=== PATIENT | male | born 1960 | race Hispanic/Latino ===

== ENCOUNTER 2018-02-18 13:18 | Observation (INO) | payer OTHER ==
[~2018-02-18] VITALS: Ht 180.3 cm; Wt 98.7 kg
[~2018-02-18 13:18] MED LIST: BENZONATATE200 MG; CEFDINIR125 MG/5 M; HUMULIN R100 UNIT/2; TAMIFLU75 MG PO; insulin n
[2018-02-18] MEDS ORDERED: MORPHINE SULFATE INJ 4 MG/ML INJ IV STA ×2 (13:21→17:15)
[2018-02-18] MEDS ORDERED: ASPIRIN 81 MG CHEW TAB PO STA (13:21)
[2018-02-18 13:38] LABS: BASOPHILS # (AUTO) 0.1 (0.0-0.1); BASOPHILS % 0.9 % (0.0-1.0); EOSINOPHILS # (AUTO) 0.2 (0.0-0.4); EOSINOPHILS % 2.4 % (0.0-6.0); HEMATOCRIT 48.2 % (38.2-49.6); HEMOGLOBIN 16.3 g/dL (14.0-18.0); LYMPHOCYTES # (AUTO) 2.5 (1.0-3.2); LYMPHOCYTES % 30.9 % (18.0-39.1); MEAN CORPUSCULAR HGB CONC 33.8 g/dL (31-35); MEAN CORPUSCULAR VOLUME 88.6 fL (81-99); MONOCYTES # (AUTO) 0.6 (0.2-0.8); MONOCYTES % 6.8 % (4.4-11.3); NEUTROPHILS # (AUTO) 4.7 (2.1-6.9); NEUTROPHILS % 58.1 % (38.7-80.0); PLATELET COUNT 283 x10e3/uL (140-360); RED BLOOD COUNT 5.44 x10e6/uL (4.3-5.7); RED CELL DISTRIBUTION WIDTH 12.6 % (11.7-14.4)
[2018-02-18 13:49] LABS: INR 1.03; PARTIAL THROMBOPLASTIN TIME 29.8 seconds (23.8-35.5); PROTHROMBIN TIME 12.7 seconds (11.9-14.5)
[2018-02-18] MEDS: NITROGLYCERIN 0.4 MG SUBL SL PRN ×2 (13:55→14:00)
[2018-02-18 13:59] LABS: ALANINE AMINOTRANSFERASE 46 IU/L (0-55); ALBUMIN/GLOBULIN RATIO 1.2 (0.8-2.0); ALKALINE PHOSPHATASE 75 IU/L (40-150); ANION GAP 15.3 mmol/L (8-16); BLOOD UREA NITROGEN 14 mg/dL (7-26); BUN/CREATININE RATIO 14 (6-25); CALCIUM 9.5 mg/dL (8.4-10.2); CARBON DIOXIDE 27 mmol/L (22-29); CHLORIDE 103 mmol/L (98-107); CREATINE KINASE 423 IU/L (30-200); CREATININE, SERUM 0.99 mg/dL (0.72-1.25); EST GLOMERULAR FILTRATION RATE > 60 ML/MIN (60-); GLUCOSE 255 mg/dL (74-118); POTASSIUM 4.3 mmol/L (3.5-5.1); SODIUM 141 mmol/L (136-145)
--- NOTE | 2018-02-18 14:09 | Diagnostic Imaging Report ---
EXAMINATION: CHEST SINGLE (PORTABLE) INDICATION: Chest pain. \S\ERMD ORDER \S\[id number] \S\1310 \S\Y COMPARISON: 08/06/2015 FINDINGS: AP view Limited by body habitus and low lung volumes. TUBES and LINES: None. LUNGS: Lungs are well inflated. Left basilar and retrocardiac opacification. PLEURA: No pleural effusion or pneumothorax. HEART AND MEDIASTINUM: The cardiac silhouette is mildly prominent, accentuated by low lung volumes. BONES AND SOFT TISSUES: No acute osseous lesion. Soft tissues are unremarkable. UPPER ABDOMEN: No free air under the diaphragm. IMPRESSION: Left basilar and retrocardiac hazy opacification, likely subsegmental atelectasis. Underlying infiltrate cannot be excluded in the appropriate clinical setting. Signed by: Dr. Jesus Hi MD on 02/18/2018 2:06 PM
[2018-02-18 14:46] LABS: AMPHETAMINES SCREEN,URINE NEGATIVE (NEGATIVE); BENZODIAZEPINES SCREEN,URINE NEGATIVE (NEGATIVE); PHENCYCLIDINE SCREEN,URINE NEGATIVE (NEGATIVE)
[2018-02-18] MEDS ORDERED: MORPHINE SULFATE 2 MG/ML SYR IV PRN (18:00)
[2018-02-18] MEDS ORDERED: ONDANSETRON HCL INJ 2 MG/ML VIAL IV PRN (18:00)
[2018-02-18] MEDS ORDERED: DEXTROSE 50% SYRINGE 50 ML IV PRN (18:00)
[2018-02-18] MEDS ORDERED: NITROGLYCERIN 0.4 MG SUBL SL PRN (18:00)
[2018-02-18] MEDS: FAMOTIDINE 20 MG/2 ML VIAL IV SCH (19:23)
[2018-02-18 20:00] VITALS: BP 159/84
[2018-02-18] MEDS: INSULIN REGULAR, HUMAN 100 UNIT/1 ML 3ML VIAL SQ SCH (21:29)
[2018-02-18 22:42] LABS: CREATINE KINASE 264 IU/L (30-200)
[2018-02-19] VITALS (8 sets, daily range): BP systolic 132–169; BP diastolic 66–83
[2018-02-19] MEDS: FAMOTIDINE 20 MG/2 ML VIAL IV SCH ×2 (05:22→17:01)
[2018-02-19 05:55] LABS: CREATINE KINASE 230 IU/L (30-200)
[2018-02-19 06:17] LABS: ANION GAP 11.4 mmol/L (8-16); BLOOD UREA NITROGEN 13 mg/dL (7-26); BUN/CREATININE RATIO 14 (6-25); CARBON DIOXIDE 27 mmol/L (22-29); CHLORIDE 105 mmol/L (98-107); CHOL/HDL RATIO 3.6 (3.9-4.7); CHOLESTEROL 133 MD/DL (0-199); CREATININE, SERUM 0.95 mg/dL (0.72-1.25); EST GLOMERULAR FILTRATION RATE > 60 ML/MIN (60-); GLUCOSE 200 mg/dL (74-118); HDL CHOLESTEROL 37 MG/DL (40-60); LDL CHOLESTEROL 75 MG/DL (60-130); POTASSIUM 4.4 mmol/L (3.5-5.1); SODIUM 139 mmol/L (136-145); TRIGLYCERIDES 105 MG/DL (0-149)
[2018-02-19 07:00] LABS: BASOPHILS # (AUTO) 0.1 (0.0-0.1); BASOPHILS % 0.5 % (0.0-1.0); EOSINOPHILS # (AUTO) 0.2 (0.0-0.4); EOSINOPHILS % 2.3 % (0.0-6.0); HEMATOCRIT 43.5 % (38.2-49.6); LYMPHOCYTES # (AUTO) 2.4 (1.0-3.2); LYMPHOCYTES % 25.7 % (18.0-39.1); MEAN CORPUSCULAR HEMOGLOBIN 29.9 pg (28-32); MEAN CORPUSCULAR HGB CONC 33.3 g/dL (31-35); MEAN CORPUSCULAR VOLUME 89.7 fL (81-99); MONOCYTES # (AUTO) 0.7 (0.2-0.8); MONOCYTES % 7.2 % (4.4-11.3); NEUTROPHILS % 63.7 % (38.7-80.0); PLATELET COUNT 254 x10e3/uL (140-360); RED BLOOD COUNT 4.85 x10e6/uL (4.3-5.7); RED CELL DISTRIBUTION WIDTH 12.5 % (11.7-14.4)
[2018-02-19 07:02] LABS: HEMOGLOBIN 14.5 g/dL (14.0-18.0)
[2018-02-19] MEDS: INSULIN REGULAR, HUMAN 100 UNIT/1 ML 3ML VIAL SQ SCH ×4 (08:46→20:30)
[2018-02-19] MEDS: ASPIRIN 81 MG ENTERIC COATED PO SCH (08:46)
[2018-02-19] MEDS: LEVOFLOXACIN 500MG/D5W 100ML 100 ML IV SCH (11:40)
[2018-02-19] MEDS: ACETAMINOPHEN 325 MG TAB PO PRN ×2 (11:50→21:20)
[2018-02-19] MEDS ORDERED: SODIUM CHLORIDE 0.9% 250ML 250 ML ONE (11:51)
[2018-02-19 12:30] LABS: CREATINE KINASE 253 IU/L (30-200)
--- NOTE | 2018-02-19 13:52 | Cardiology Report ---
DATE OF STUDY: CARDIAC STRESS TEST TECHNICAL DETAILS. The protocol is a Elian with 85% heart rate at 139 per minute. RESULTS 1. Patient exercised for 6 minutes. 2. Heart rate increased from 93 to 148 per minute. 3. Blood pressure increased from 150/80 to 188/94. 4. No chest pain. 5. No EKG changes. IMPRESSION: Negative cardiac stress test. Limitation of negative cardiac stress test discussed with the patient at length. Since he is diabetic, we will recommend aspirin 81 mg a day and GONZALEZ inhibitor. Lipid profile is checked. Limitations are explained with patient having any symptoms, he need to give us a call. Job#: [id number] LOUISE
--- NOTE | 2018-02-19 14:24 | Consultation ---
DATE OF CONSULTATION: February 19, 2018 REASON FOR CONSULTATION: Chest pain. HISTORY: This is a 57-year-old male with long history of diabetes for at least 20 to 25 years, diabetic neuropathy, diabetic retinopathy, chronic bronchitis, and sinusitis issues. Patient presents to [facility] ER with several-day history of feeling short of breath, weakness, occasional chest discomfort; therefore, came to the ER for further evaluation. Cardiology was consulted to evaluate patient. Patient seen in room, in no acute distress, reports for the past several days he has been short of breath, feeling weak, headaches, stating not feeling himself, and also feeling nasal congestion, intermittent coughing. However, yesterday patient was in [employer]. Apparently, when he was leaving, he felt very weak, had some chest discomfort. He thought it was indigestion; however, felt slightly dizzy and therefore asked his family member to bring him to the hospital. States that chest pain lasted all day, was indigestion he thought, and maybe some slight pressure, substernal. Also, patient in ER received 2 nitroglycerins, which patient states did help some of this "indigestion." Also, patient was concerned because he has noticed in the past several days, his blood pressure anywhere from 160s to 170 systolic, and he reports his blood pressure is always 130s. However, patient does admit to taking NSAIDs frequently and also had been taking Sudafed, multiple doses, in the past several days for his nasal congestion. Currently, patient is chest pain free. PAST MEDICAL HISTORY: Diabetes, diabetic neuropathy, diabetic retinopathy, sinusitis, and bronchitis. SURGICAL HISTORY: Right retinal surgery secondary to hemorrhage, argon therapy in 2007. FAMILY HISTORY: Mother is alive at the age of 84, apparently has a history of stroke, [place], and CHF. Father aged 87, alive, apparently history of diabetes and Parkinson's. SOCIAL HISTORY: He is . 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 He denies any alcohol use or tobacco use. HOME MEDICATIONS: Include insulin, albuterol, steroid, Sudafed, and [id number]-[id number] NSAIDS. ALLERGIES: NO KNOWN ALLERGIES. REVIEW OF SYSTEMS GENERAL: Positive for weight gain in the past year at least 20 pounds. Positive for fatigue, weakness, subjective fevers and chills. Denies any night sweats. SKIN: No rashes or sores reported. HEENT: Denies any trauma. Positive for headaches. Positive for nausea. Denies any vomiting. Chronic right eye blurriness since right eye surgery in about 2007. Denies any tinnitus, vertigo, earaches. Positive for stuffiness, itchy. Denies any epistaxis. Denies any sore throat, swollen neck, hoarseness. CARDIAC: Positive for chest pain. Positive dyspnea on exertion. Denies any palpitations. Denies any orthopnea, PND, or lower extremity edema. RESPIRATORY: Positive for shortness of breath. Positive for cough. Positive for wheezing. Cough productive, which he says it is clear in nature. GI: Good appetite. Positive for nausea. Denies any vomiting. Denies any diarrhea, constipation, hematemesis, or melena. URINARY: Positive for hesitancy, poor urine stream. Denies any dysuria. VASCULAR: Denies any lower extremity edema, claudication. MUSCULOSKELETAL: Positive for generalized muscle weakness. Positive for generalized joint pains, back pain. NEUROLOGIC: Denies any numbness, tingling, paralysis, blackouts, seizures. HEMATOLOGY: Denies any anemia, bruising. ENDOCRINE: Denies any heat or cold intolerance, any polyuria, polydipsia, polyphagia. PHYSICAL EXAMINATION CURRENT VITALS SIGNS: Temperature 98.0, pulse 73, respiratory rate 18, blood pressure 167/81, on room air 100%. Height 71 inches, weight 234 pounds, BMI 32. GENERAL: He is a reliable historian. No acute distress. Appears his stated age. SKIN: No rashes, bruises noticed. HEENT: Normocephalic. Pupils equal and reactive. Extraocular motor intact. Trachea midline. Oral mucosa pink. No thyromegaly. NECK: No JVD. No carotid bruits noted. HEART: Regular rate and rhythm. No murmurs or clicks noted. LUNGS: Bilateral wheezes noted throughout, some crackles on the left side specifically. ABDOMEN: Soft, nontender, nondistended. No organomegaly noted. MUSCULOSKELETAL: Good muscle strength throughout. No lower extremity edema. VASCULAR: +2 bilateral radial pulses, +2 DP and PT pulses bilaterally. NEUROLOGIC: Cranial nerves II through XII seem intact. LABS: Sodium 139, potassium of 4.4, BUN 13, creatinine 0.9, glucose 200, troponin less than 0.01 x3. White count 9, hemoglobin 14, hematocrit 43, platelets 254. Chest x-ray showing left basilar and retrocardiac hazy opacifications. EKG showing normal sinus rhythm. ASSESSMENT 1. Chest pain. 2. Upper respiratory infection, possible bronchopneumonia. 3. Hypertension. 4. Diabetes, uncontrolled. 5. Obesity. PLAN 1. Patient presents with multiple symptoms, upper respiratory infection-type symptoms, and some vague chest pain symptoms. Given patient's history and the patient is very concerned, we will do ischemic evaluation while here. We will do a stress test and also will do an echo to evaluate heart function and structure. Also, we will go ahead and get an A1c and a lipid panel. 2. Diabetes control discussed with patient at length. 3. Further recommendations as clinical course progresses. Thank you very much for this consult. Dictated by: Aleks Uribe NP Seen and examined Stress test is done, limitations are explained Job#: [id number] LUZ MARINA RG
[2018-02-19] MEDS: METOPROLOL TARTRATE 25 MG TAB PO SCH (16:55)
[2018-02-20 04:30] VITALS: BP 155/85
[2018-02-20] MEDS: FAMOTIDINE 20 MG/2 ML VIAL IV SCH (07:18)
[2018-02-20] MEDS: INSULIN REGULAR, HUMAN 100 UNIT/1 ML 3ML VIAL SQ SCH ×2 (07:30→11:30)
[2018-02-20 07:39] VITALS: BP 167/79
[2018-02-20 08:00] VITALS: BP 167/79
[2018-02-20] MEDS: ASPIRIN 81 MG ENTERIC COATED PO SCH (08:40)
[2018-02-20] MEDS: METOPROLOL TARTRATE 25 MG TAB PO SCH (08:40)
[2018-02-20] MEDS ORDERED: LISINOPRIL 2.5 MG TAB PO SCH ×2 (09:00)
[2018-02-20] MEDS ORDERED: LISINOPRIL 2.5 MG TAB PO ONE (09:15)
[2018-02-20] MEDS: LEVOFLOXACIN 500MG/D5W 100ML 100 ML IV SCH (10:50)
[2018-02-20 11:11] VITALS: BP 164/86
[2018-02-20] MEDS ORDERED: LISINOPRIL10 MG PO (12:07)
[2018-02-20] MEDS ORDERED: METOPROLOL TART25 MG PO (12:08)
[2018-02-20] MEDS ORDERED: LEVAQUIN500 MG PO (12:08)
[2018-02-21] MEDS ORDERED: LISINOPRIL 10 MG TAB PO SCH (09:00)
== END 2018-02-20 12:50 | disposition home or self-care (01) ==
LOC: ER 13:18 → ERHOLD 17:57 → IMCU 20:05
DX: R07.89 Other chest pain (principal); E11.42 Type 2 diabetes mellitus with diabetic polyneuropathy; E11.319 Type 2 diabetes mellitus with unspecified diabetic retinopathy without macular edema; Z79.4 Long term (current) use of insulin; E78.5 Hyperlipidemia, unspecified; I10 Essential (primary) hypertension; J40 Bronchitis, not specified as acute or chronic; E66.9 Obesity, unspecified; E11.65 Type 2 diabetes mellitus with hyperglycemia
CPT/HCPCS: 36415 ×3; 71045; 80048; 80053; 80061; 80307; 82550 ×2; 82553 ×2; 82948 ×3; 83036; 84484 ×2; 85025 ×2; 85610; 85730; 93005; 93017; 93306; 99285; G0378 ×3; J1956 ×2; J2270; J7050

== ENCOUNTER 2019-05-23 04:54 | Observation (INO) | payer OTHER ==
[~2019-05-23] VITALS: Ht 180.3 cm; Wt 98.4 kg
[~2019-05-23 04:54] MED LIST changes: +LEVAQUIN500 MG PO; +LISINOPRIL10 MG PO; +METOPROLOL TART25 MG PO
[2019-05-23] MEDS ORDERED: NITROGLYCERIN 2% OINT 1 GM PKT TOP ONE (05:30)
[2019-05-23] MEDS ORDERED: ACETAMINOPHEN 325 MG TAB PO ONE (05:30)
[2019-05-23] MEDS ORDERED: NITROGLYCERIN 2% OINT 1 GM PKT ONE (05:45)
[2019-05-23] MEDS ORDERED: ONDANSETRON HCL INJ 2MG/ML 2ML 2 MG/ML VIAL IV PRN (06:00)
[2019-05-23] MEDS ORDERED: ASPIRIN 81 MG CHEW TAB PO ONE (06:00)
[2019-05-23] MEDS ORDERED: SODIUM CHLORIDE FLUSH 10 ML SYR INJ PRN (06:00)
[2019-05-23] MEDS ORDERED: ALBUTEROL/IPRATROPIUM 3 ML NEB NEB PRN (06:00)
--- NOTE | 2019-05-23 06:03 | NUR ---
[facility] NOTIFIED OF NEED FOR TRANSFER TO [facility]. 30-45 ETA GIVEN
[2019-05-23] MEDS ORDERED: DEXTROSE 50% SYRINGE 50 ML IV PRN ×2 (06:15→09:15)
--- NOTE | 2019-05-23 06:32 | Diagnostic Imaging Report ---
EXAMINATION: CXR 2 VIEW - HOPD INDICATION: Chest pain, short of breath COMPARISON: Chest x-ray 02/18/2018 FINDINGS: TUBES and LINES: None. LUNGS: Lungs are well inflated. Lungs are clear. There is no evidence of pneumonia or pulmonary edema. PLEURA: No pleural effusion or pneumothorax. HEART AND MEDIASTINUM: The cardiomediastinal silhouette is unremarkable. There are atherosclerotic calcifications within the aorta. BONES AND SOFT TISSUES: There are degenerative changes in the spine. Soft tissues are unremarkable. UPPER ABDOMEN: No free air under the diaphragm. IMPRESSION: No acute thoracic radiographic abnormality. Signed by: Giuseppe Thomas DO on 05/23/2019 6:29 AM
[2019-05-23] MEDS ORDERED: METOPROLOL TARTRATE INJ 1 MG/ML VIAL IV PRN (07:15)
[2019-05-23] MEDS ORDERED: ACETAMINOPHEN/CODEINE 300MG - 30MG TAB PO PRN (07:15)
[2019-05-23] MEDS ORDERED: ACETAMINOPHEN 325 MG TAB PO PRN ×2 (07:15→08:00)
--- NOTE | 2019-05-23 07:20 | NUR ---
PT RECEIVED FROM EMS. AAOX4. EDUCATED PT ABOUT FALL PRECAUTIONS. CALL LIGHT WITH IN EASY REACH. INSTRUCTED PT TO USE CALL LIGHT FOR ALL THE NEEDS. PT VERBALIZED UNDERSTANDING. BED IS LOW AND LOCKED. SIDE RAILS X2. PT DENIES NEEDS AT THIS TIME.
--- NOTE | 2019-05-23 07:25 | NUR ---
DEMARCUS SECURITY ALARM TECHNICIAN AT BEDSIDE.
[2019-05-23 07:40] VITALS: BP 157/82
[2019-05-23] MEDS ORDERED: NORVASC10 MG PO (07:53)
[2019-05-23] MEDS ORDERED: BACLOFEN10 MG PO (07:53)
[2019-05-23] MEDS ORDERED: ASPIRIN EC81 MG PO (07:53)
[2019-05-23] MEDS ORDERED: ATIVAN0.5 MG PO (07:56)
[2019-05-23 07:57] VITALS: BP 157/82
[2019-05-23 08:00] VITALS: BP 157/82
[2019-05-23] MEDS ORDERED: LORAZEPAM 0.5 MG TAB PO PRN (08:00)
[2019-05-23] MEDS ORDERED: BENZONATATE 100 MG CAP PO PRN (08:00)
[2019-05-23] MEDS ORDERED: BACLOFEN 10 MG TAB PO PRN (08:00)
[2019-05-23 08:10] LABS: BASOPHILS # (AUTO) 0.1 (0.0-0.1); BASOPHILS % 0.5 % (0.0-1.0); EOSINOPHILS # (AUTO) 0.2 (0.0-0.4); EOSINOPHILS % 1.4 % (0.0-6.0); HEMOGLOBIN 14.9 g/dL (14.0-18.0); LYMPHOCYTES % 16.7 % (18.0-39.1); MEAN CORPUSCULAR HEMOGLOBIN 29.4 pg (28-32); MEAN CORPUSCULAR HGB CONC 33.1 g/dL (31-35); MEAN CORPUSCULAR VOLUME 88.9 fL (81-99); MONOCYTES # (AUTO) 0.7 (0.2-0.8); MONOCYTES % 5.6 % (4.4-11.3); NEUTROPHILS % 75.1 % (38.7-80.0); PLATELET COUNT 278 x10e3/uL (140-360); RED BLOOD COUNT 5.06 x10e6/uL (4.3-5.7); RED CELL DISTRIBUTION WIDTH 12.8 % (11.7-14.4)
[2019-05-23] MEDS: FAMOTIDINE 20 MG TAB PO SCH ×2 (08:14→16:46)
--- NOTE | 2019-05-23 08:30 | NUR ---
ANAYELI TRACY AND INFORMED PT BLOOD SUGAR.
[2019-05-23 08:36] LABS: ANION GAP 14.8 mmol/L (8-16); BLOOD UREA NITROGEN 19 mg/dL (7-26); BUN/CREATININE RATIO 19 (6-25); CALCIUM 9.4 mg/dL (8.4-10.2); CARBON DIOXIDE 23 mmol/L (22-29); CHLORIDE 106 mmol/L (98-107); EST GLOMERULAR FILTRATION RATE > 60 ML/MIN (60-); GLUCOSE 204 mg/dL (74-118); POTASSIUM 3.8 mmol/L (3.5-5.1); SODIUM 140 mmol/L (136-145)
[2019-05-23 08:56] LABS: THYROID STIMULATING HORMONE 1.717 uIU/mL (0.350-4.940)
[2019-05-23 08:58] LABS: CREATINE KINASE MB 5.4 ng/mL (0-5.0)
[2019-05-23] MEDS ORDERED: ACETAMIN/BUTALBITAL/CAFFEINE TAB PO ONE (09:00)
[2019-05-23] MEDS ORDERED: LISINOPRIL 10 MG TAB PO SCH ×2 (09:00)
[2019-05-23] MEDS ORDERED: AMLODIPINE BESYLATE 10 MG TAB PO SCH (09:00)
[2019-05-23] MEDS ORDERED: ASPIRIN 81 MG ENTERIC COATED PO SCH (09:00)
[2019-05-23] MEDS: INSULIN REGULAR, HUMAN 100 UNIT/1 ML 3ML VIAL SQ SCH ×2 (11:30→16:30)
--- NOTE | 2019-05-23 11:30 | NUR ---
GRAYSON ROMERO AT BEDSIDE. STRESS TEST ORDERED. PT REFUSED INSULIN.
[2019-05-23 11:45] LABS: ALBUMIN 3.6 g/dL (3.5-5.0); BILIRUBIN,DIRECT 0.2 mg/dL (0.0-0.5); CHOL/HDL RATIO 3.6 (3.9-4.7)
[2019-05-23 11:54] VITALS: BP 151/76
[2019-05-23] MEDS ORDERED: NITROGLYCERIN 2% OINT 1 GM PKT TOP SCH (12:00)
--- NOTE | 2019-05-23 12:15 | NUR ---
PT OFF UNIT FOR PROCEDURE IN SAFE CONDITION.
--- NOTE | 2019-05-23 13:00 | NUR ---
PT BACK TO UNIT AFTER PROCEDURE.
[2019-05-23 15:59] VITALS: BP 139/74
--- NOTE | 2019-05-23 16:00 | NUR ---
PAGED EKG REGARDING STRESS TEST RESULTS
--- NOTE | 2019-05-23 16:47 | EXERCISE STRESS TEST ---
DATE OF STUDY: 05/23/2019 11:29:00 Stress Test - Treadmill ONLY TECHNICAL DETAILS: The protocol is Elian with target heart rate at 137 per minute. RESULTS: 1. The patient exercised for total of 6 minutes. 2. Heart rate increased from 90 to 137 per minute. 3. Blood pressure increased from 115/60 to 176/62. 4. No chest pain. 5. No EKG changes. IMPRESSION: Negative cardiac stress test. Limitations of a negative cardiac stress test are discussed and explained. MD YANDY Dhaliwal/MODL /[id number]
--- NOTE | 2019-05-23 17:00 | NUR ---
PAGED DR. VICENTE REGARDING PT D/C PLAN.
--- NOTE | 2019-05-23 17:02 | NUR ---
Pt requested to speak to a dietitian for diet education regarding low sodium/diabetic diet and weight management information. Nutrition Education Learner(s): pt Barriers: no barriers identified Cultural/Language Modifications: No cultural/language modifications noted. Readiness: eager Method: explanation/ discussion, handout Topics: Carbohydrate counting handouts, Reading the nutrition label, low sodium diet, weight management Understanding/Compliance: Pt verbalized understanding and RD answered pts questions
[2019-05-23 17:21] LABS: CREATINE KINASE MB 4.7 ng/mL (0-5.0)
--- NOTE | 2019-05-23 18:00 | NUR ---
D/C PT PER DR. VICENTE AND DEMARCUS ROMERO.
--- NOTE | 2019-05-23 19:00 | NUR ---
PT DISCHARGED HOME SAFELY WITH FAMILY. TELE AND IV REMOVED. TIP INTACT. DRESSING APPLIED. RX GIVEN. PT REFUSED ASSISTANCE.PT DENIED FURTHER NEEDS.
--- NOTE | 2019-05-23 19:13 | Consultation ---
DATE OF CONSULTATION: 05/23/2019 REASON FOR CONSULTATION: Chest pain. CHIEF COMPLAINT: Hypertension. HISTORY OF PRESENT ILLNESS: This is a 59-year-old male with history of diabetes, diabetic neuropathy, diabetic retinopathy, chronic bronchitis, and sinus issues. The patient presents to [facility] ER with complaints of elevated blood pressure. On admission, blood pressure was 208/96. Also, the patient reported chest pain and discomfort. Cardiology was consulted to evaluate the patient. The patient is seen in room, very anxious. He reports for the past several months has been under much stress given his dad recently had an MN and his mother had an MN within the past year. The patient reports he has been taking care of his parents and not taking his medications as directed. He noted his blood pressure is elevated. He took his lisinopril, however, he noted that his blood pressure was still elevated, so therefore he came to the hospital for further evaluation. Also, he reports left parasternal chest discomfort and ache, nonradiating, nonexertional. However, with the patient's family history, the patient is very concerned about his cardiac status. EKG noted no acute changes suggestive of acute event. His troponin 0.08. PAST MEDICAL HISTORY: Hypertension, diabetes, diabetic neuropathy, diabetic retinopathy, and anxiety. PAST SURGICAL HISTORY: Right retinal surgery secondary to hemorrhage. FAMILY HISTORY: Mother is alive with a history of stroke, MN, and CHF. Father is alive with recent MN in March 2019 and Parkinson's. SOCIAL HISTORY: He is . 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 He denies any alcohol use or tobacco use. HOME MEDICATIONS: The patient has not been taking medicine and takes medications periodically, however, he is on insulin. He is on albuterol, lisinopril, and metoprolol. Currently, on Z-Jose for upper respiratory infection. ALLERGIES: DENIES ANY ALLERGIES. REVIEW OF SYSTEMS: GENERAL: Denies any weight gain, fever, chills, or night sweats. SKIN: No rashes or sores. HEENT: No headaches, nausea, or vomiting. Chronic right eye blurriness. Denies any tinnitus, vertigo, earaches, stuffiness, itching, epistaxis, sore throat, swollen neck, or hoarseness. CARDIAC: Positive for chest pain. Positive for dyspnea on exertion. Positive for palpitations. Denies any orthopnea, PND, or lower extremity edema. RESPIRATORY: Positive for shortness of breath. Positive for cough. No wheezing. No hemoptysis. GI: Reports good appetite. Denies any nausea, vomiting, diarrhea, constipation, any hematochezia or melena. URINARY: Positive for hesitancy. Denies any dysuria. VASCULAR: Denies any lower extremity edema or claudication. MUSCULOSKELETAL: Denies any muscle weakness. Positive for generalized joint pains and back pain. NEUROLOGIC: Denies any numbness, tingling, paralysis, blackout, or seizures. HEMATOLOGY: Denies any anemia or bruising. ENDOCRINE: Denies any heat or cold intolerance, any polyuria, polydipsia, or polyphagia. PHYSICAL EXAMINATION: VITAL SIGNS: Temperature 97, pulse 86, blood pressure 157/82, pulse ox 97% on room air, height 71 inches, weight 217 pounds, BMI 30. GENERAL: Reliable historian, in no acute distress. Appears stated age. SKIN: No rashes or bruises noted. HEENT: Normocephalic. Pupils are equal and reactive. Extraocular movements intact. Trachea midline. Oral mucosa pink. No thyromegaly. No carotid bruits. HEART: Regular rate and rhythm. No murmurs or clicks noted. PMI about 4th and 5th intercostal space. LUNGS: Bilateral breath sounds. Clear to auscultation. Good airway entry. ABDOMEN: Soft, nontender, and nondistended. No organomegaly. MUSCULOSKELETAL: Good muscle strength throughout. No lower extremity edema. VASCULAR: +2 bilateral radial pulses. +2 DP and PT pulses bilaterally. NEUROLOGIC: Cranial nerves II through XII seem intact, anxious. LABORATORY DATA: Sodium 140, potassium 3.8, chloride 106, BUN 19, creatinine 1.0. Hemoglobin A1c 8.3. Troponin I 0.008. TSH 1.7. White count 12, hemoglobin 14, hematocrit 45, platelets 278. Chest x-ray, no acute abnormalities. EKG, normal sinus rhythm. ASSESSMENT: 1. Hypertension. 2. Chest pain. 3. Diabetes, uncontrolled. 4. Obesity. 5. Noncompliant with medication therapy. 6. Upper respiratory infection. PLAN: 1. The patient presents with complaints of hypertension, uncontrolled blood pressure, however, the patient has not been taking his medication as directed. Also, the patient reports he has increased his salt intake in the past recent weeks, taking care of his parents in [facility]. Also, complains of some chest pain, achy in nature, however, atypical for cardiac. However, the patient is very concerned given his family history of CAD and his recent father with an MN in March 2019, and is wishing for ischemic evaluation. 2. We will go ahead and do a stress test to evaluate symptoms. 3. Echo to evaluate heart function and structure. 4. Needs diabetic management. 5. Long discussion with the patient regarding the need of taking his medications as directed. 6. Further recommendations post ischemic evaluation. Thank you very much for this consult. Dictated by Aleks Uribe NP Ana Dhaliwal MD DC/MODL /[id number]
--- NOTE | 2019-05-25 05:43 | Discharge Summary ---
ADMISSION DIAGNOSES: Chest pain, hypertensive urgency, type 2 diabetes, hyperlipidemia, obesity with a BMI of 30.3, anxiety. DISCHARGE DIAGNOSES: Chest pain, hypertensive urgency, type 2 diabetes, hyperlipidemia, obesity with a BMI of 30.3, anxiety, rule out myocardial infarction. HISTORY: Hypertension, hyperlipidemia, type 2 diabetes, asthma. SURGICAL HISTORY: Right eye surgery. FAMILY HISTORY: The patient's mother had a stroke. The patient's mother and father had a heart attack. The patient's father and great grandfather had diabetes. SOCIAL HISTORY: Noncontributory. HOSPITAL COURSE: A 59-year-old male admits with complaints of chest pain that began 7 to 10 days ago. He was sleeping and the pain began while walking to the restroom. He denies shortness of breath. He had associated dizziness. Yesterday, his blood pressure was in the 180s, so he came to the ER. He had a recent respiratory infection and was treated with a Z-Jose. On admission, troponins were negative x3. Chest x-ray was negative. The patient was started on aspirin and Cardiology consulted. He had a negative stress test in February 2018, but per Cardiology recommendation, the patient will get another stress test. The patient was started on his home medicine of lisinopril plus Norvasc to help the blood pressure. He is refusing a beta-katelin due to his diabetes and symptoms of hypoglycemia. After the negative stress test, the patient was discharged home. The patient's preliminary echo showed EF of 45+ percent. He will discharge home and follow up with primary care in 1 to [address] Dhaliwal as discussed. The patient understands discharge instructions and agrees to plan. Dictated by Sara Call NP MD GLENN Dodson/YOHANA /[id number]
== END 2019-05-23 19:11 | disposition home or self-care (01) ==
LOC: FSED 04:54 → ERHOLD 06:01 → MED/SURG2 07:23
PROVIDERS: ADMIT Internal Medicine; ATTEND Internal Medicine
DX: R07.9 Chest pain, unspecified (principal); I16.0 Hypertensive urgency; I10 Essential (primary) hypertension; J45.909 Unspecified asthma, uncomplicated; Z82.3 Family history of stroke; Z83.3 Family history of diabetes mellitus; E66.9 Obesity, unspecified; Z68.30 Body mass index [BMI] 30.0-30.9, adult; E78.5 Hyperlipidemia, unspecified; F41.9 Anxiety disorder, unspecified; E11.42 Type 2 diabetes mellitus with diabetic polyneuropathy; E11.319 Type 2 diabetes mellitus with unspecified diabetic retinopathy without macular edema; J06.9 Acute upper respiratory infection, unspecified; Z91.14 Patient's other noncompliance with medication regimen; Z82.49 Family history of ischemic heart disease and other diseases of the circulatory system
CPT/HCPCS: 36415; 71046; 80048; 80053; 80061; 80076; 82550; 82553; 82948; 83036; 83735; 84443; 84484; 85025; 93005; 93017; 93306; 99284; G0378; J1817

== ENCOUNTER 2019-07-23 20:30 | Inpatient (IN) | payer OTHER ==
[~2019-07-23] VITALS: Ht 180.3 cm; Wt 103.6 kg
[~2019-07-23 20:30] MED LIST changes: +ASPIRIN EC81 MG PO; +ATIVAN0.5 MG PO; +BACLOFEN10 MG PO; -HUMULIN R100 UNIT/2; +HUMULIN R100 UNIT/2 SQ; +NORVASC10 MG PO
[2019-07-23] MEDS ORDERED: MORPHINE SULFATE 2 MG/ML SYR 1ML IV STA (21:20)
[2019-07-23] MEDS ORDERED: ONDANSETRON HCL INJ 2MG/ML 2ML 2 MG/ML VIAL IV STA (21:20)
[2019-07-23] MEDS ORDERED: PANTOPRAZOLE 40 MG 10ML VIAL IV STA (21:20)
[2019-07-23] MEDS ORDERED: DICYCLOMINE HCL 20 MG/2 ML VIAL IM ONE (21:30)
[2019-07-23 22:26] LABS: BASOPHILS % 0.2 % (0.0-1.0); EOSINOPHILS % 0.1 % (0.0-6.0); HEMATOCRIT 43.7 % (38.2-49.6); HEMOGLOBIN 14.6 g/dL (14.0-18.0); LYMPHOCYTES # (AUTO) 1.1 (1.0-3.2); LYMPHOCYTES % 6.5 % (18.0-39.1); MEAN CORPUSCULAR HEMOGLOBIN 29.7 pg (28-32); MEAN CORPUSCULAR HGB CONC 33.4 g/dL (31-35); MONOCYTES % 5.9 % (4.4-11.3); NEUTROPHILS # (AUTO) 15.3 (2.1-6.9); NEUTROPHILS % 86.8 % (38.7-80.0); PLATELET COUNT 286 x10e3/uL (140-360); RED BLOOD COUNT 4.91 x10e6/uL (4.3-5.7); RED CELL DISTRIBUTION WIDTH 12.5 % (11.7-14.4)
[2019-07-23 22:32] LABS: CLARITY,URINE CLEAR (CLEAR); COLOR,URINE YELLOW (YELLOW); LEUKOCYTE ESTERASE ,URINE NEGATIVE (NEGATIVE); NITRITE,URINE NEGATIVE (NEGATIVE)
[2019-07-23 22:33] LABS: BILIRUBIN,URINE NEGATIVE (NEGATIVE); KETONES,URINE 1+ (NEGATIVE); PROTEIN,URINE DIPSTICK 1+ (NEGATIVE); URINE UROBILINOGEN 0.2 mg/dL (0.2 - 1)
[2019-07-23 22:40] LABS: ALANINE AMINOTRANSFERASE 18 IU/L (0-55); ALBUMIN 3.6 g/dL (3.5-5.0); ALBUMIN/GLOBULIN RATIO 0.9 (0.8-2.0); ALKALINE PHOSPHATASE 66 IU/L (40-150); AMYLASE 29 U/L (25-125); ANION GAP 17.7 mmol/L (8-16); BLOOD UREA NITROGEN 16 mg/dL (7-26); BUN/CREATININE RATIO 16 (6-25); CALCIUM 10.3 mg/dL (8.4-10.2); CARBON DIOXIDE 26 mmol/L (22-29); CHLORIDE 96 mmol/L (98-107); CREATINE KINASE 147 IU/L (30-200); CREATININE, SERUM 1.02 mg/dL (0.72-1.25); EST GLOMERULAR FILTRATION RATE > 60 ML/MIN (60-); GLUCOSE 282 mg/dL (74-118); LIPASE 13 U/L (8-78); POTASSIUM 4.7 mmol/L (3.5-5.1); SODIUM 135 mmol/L (136-145)
[2019-07-23 22:43] LABS: BACTERIA,URINE FEW /HPF; EPITHELIAL CELLS,URINE FEW /LPF; MUCUS,URINE MANY (RARE); RBC,URINE 0-5 /HPF (0-5); WBC,URINE (MAN) 0-5 /HPF (0-5)
[2019-07-23] MEDS ORDERED: ALBUTEROL2.5 MG/3 M INH (23:12)
[2019-07-23] MEDS ORDERED: ESCITALOPRAM OX10 MG PO (23:12)
[2019-07-23] MEDS ORDERED: MONTELUKAST SOD10 MG PO (23:12)
--- NOTE | 2019-07-24 00:26 | Diagnostic Imaging Report ---
EXAM: Right Upper Quadrant Ultrasound with Doppler INDICATION: ruq pain, leukocytosis COMPARISON: None. TECHNIQUE: Transverse and longitudinal images of the right upper abdomen were obtained. Grayscale, color Doppler and spectral waveform analysis of the hepatic vasculature and splenic vein were performed. FINDINGS: Liver: Size: 16.8 cm in the right midclavicular line, normal Appearance: Increased echogenicity, smooth contour Mass: No focal masses Gallbladder: Stones/Sludge: Multiple echogenic shadowing stones including a stone in the gallbladder neck. Wall: 0.4 cm, slightly thickened and heterogeneous Appearance: Hydropic. Questionable trace pericholecystic fluid. Sonographic Vazquez's Sign: Negative Bile Ducts: Intrahepatic Ducts: No dilatation Extrahepatic Ducts: Common bile duct measures 0.4 cm, no dilatation Pancreas: Not well seen. Right Kidney: Size: 11.8 cm Echogenicity: Normal Parenchymal thickness: Normal Collecting system: No hydronephrosis Stones: None Cyst/Mass: None Vessels: Main Portal Vein: Diameter: 0.7 cm, normal. Normal flow direction. Aorta: Not well seen. Inferior Vena Cava: Visualized portions are normal Free Fluid: No ascites or pleural effusion IMPRESSION: Findings of acute obstructive calculus cholecystitis. Hepatic steatosis. Signed by: Giuseppe Thomas DO on 07/24/2019 12:23 AM
[2019-07-24] MEDS ORDERED: DEXTROSE 50% SYRINGE 50 ML IV PRN (00:45)
[2019-07-24] MEDS ORDERED: PIPER-TAZ 3.375 GM 50 ML IV ONE (01:00)
[2019-07-24] MEDS: SODIUM CHLORIDE 0.9% 1000ML 1,000 ML IV SCH ×3 (01:04→16:29)
[2019-07-24] MEDS: HYDROMORPHONE 1MG/1ML INJ IV PRN ×5 (02:00→21:27)
[2019-07-24] MEDS: PIPER-TAZ 3.375 GM / NS 50ML IV SCH ×3 (06:58→21:40)
[2019-07-24] MEDS: INSULIN REGULAR, HUMAN 100 UNIT/1 ML 3ML VIAL SQ SCH ×4 (08:09→21:00)
[2019-07-24] MEDS: ONDANSETRON HCL INJ 2MG/ML 2ML 2 MG/ML VIAL IV PRN ×3 (11:30→21:27)
--- NOTE | 2019-07-24 11:32 | NUR ---
Dr. Cristobal at bedside. Checked patients blood sugar and result was 282. Informed Dr. Cristobal that I have not given patients a.m. insuling sliding dose being that patient was npo. Was told to proceed with given patients sliding scale insulin dose.
--- NOTE | 2019-07-24 15:46 | NUR ---
attempted to call report was told that nurse was at lunch and would call back.
[2019-07-24 16:37] VITALS: BP 149/78
[2019-07-24 16:49] VITALS: BP 149/78
--- NOTE | 2019-07-24 19:00 | NUR ---
Patient visited in room during nursing rounds. Patient alert and oriented x3. Ambulatory in room prn. On IVF (NS at 125ml/hr). Pt c/o RUQ abd pain radiating to side frequently and being medicated accordingly. Pt aware will have possible lap cholecystectomy tomorrow by Dr. Anayeli Cristobal. Call taylor within reach. Will monitor closely.
[2019-07-24 20:00] VITALS: BP 126/66
--- NOTE | 2019-07-24 20:29 | NUR ---
Spoke with Dr. Oskar Cristobal over phone and verified surgery (Laparoscopic Cholecystectomy) tomorrow (07/25/19). MD aware pt having slight fever (T = 100.9) and ordered to give Tylenol 650mg PO Q4hr prn.
--- NOTE | 2019-07-24 20:40 | NUR ---
Patient took a shower. Pt in stable condition at this time. and daughter at bedside visiting.
[2019-07-24 21:00] VITALS: BP 126/66
--- NOTE | 2019-07-24 21:00 | NUR ---
Patient performs own fingerstick blood glucose check. Blood glucose at this time is 189. Pt refuses insulin (4 units Humulin R per sliding scale). Pt is currently NPO.
--- NOTE | 2019-07-24 21:04 | NUR ---
Spoke with Dr. Anum Maki and informed pt having some wheezes bilaterally (both RUL and REMI husain). ordered to start pt on Duoneb Q4hr prn for shortness of breath.
[2019-07-24] MEDS ORDERED: ALBUTEROL/IPRATROPIUM 3 ML NEB NEB PRN (21:15)
[2019-07-24] MEDS: ACETAMINOPHEN 325 MG TAB PO PRN (21:42)
--- NOTE | 2019-07-24 21:45 | NUR ---
Patient agreed and signed consent form for procedure (Lap Caridad) tomorrow.
[2019-07-25] VITALS (7 sets, daily range): BP systolic 108–150; BP diastolic 60–80
--- NOTE | 2019-07-25 02:40 | NUR ---
Patient checked his own fingerstick blood glucose using his own glucometer. Blood glucose was 153 at this time.
[2019-07-25] MEDS: ONDANSETRON HCL INJ 2MG/ML 2ML 2 MG/ML VIAL IV PRN ×2 (02:45→20:14)
[2019-07-25] MEDS: HYDROMORPHONE 1MG/1ML INJ IV PRN ×3 (02:45→20:09)
[2019-07-25] MEDS: SODIUM CHLORIDE 0.9% 1000ML 1,000 ML IV SCH ×3 (02:45→16:31)
[2019-07-25 05:08] LABS: BASOPHILS % 0.1 % (0.0-1.0); EOSINOPHILS % 0.1 % (0.0-6.0); HEMATOCRIT 40.9 % (38.2-49.6); HEMOGLOBIN 13.3 g/dL (14.0-18.0); LYMPHOCYTES # (AUTO) 1.6 (1.0-3.2); MEAN CORPUSCULAR HEMOGLOBIN 29.6 pg (28-32); MEAN CORPUSCULAR HGB CONC 32.5 g/dL (31-35); MEAN CORPUSCULAR VOLUME 91.1 fL (81-99); MONOCYTES # (AUTO) 2.1 (0.2-0.8); MONOCYTES % 10.3 % (4.4-11.3); NEUTROPHILS # (AUTO) 16.5 (2.1-6.9); NEUTROPHILS % 80.9 % (38.7-80.0); PLATELET COUNT 281 x10e3/uL (140-360); RED BLOOD COUNT 4.49 x10e6/uL (4.3-5.7)
[2019-07-25 05:30] LABS: ALANINE AMINOTRANSFERASE 15 IU/L (0-55); ALBUMIN 2.7 g/dL (3.5-5.0); ALBUMIN/GLOBULIN RATIO 0.7 (0.8-2.0); ALKALINE PHOSPHATASE 58 IU/L (40-150); AMYLASE 19 U/L (25-125); ANION GAP 14.9 mmol/L (8-16); BLOOD UREA NITROGEN 19 mg/dL (7-26); BUN/CREATININE RATIO 15 (6-25); CALCIUM 9.2 mg/dL (8.4-10.2); CARBON DIOXIDE 27 mmol/L (22-29); CHLORIDE 102 mmol/L (98-107); CREATININE, SERUM 1.28 mg/dL (0.72-1.25); EST GLOMERULAR FILTRATION RATE 58 ML/MIN (60-); GLUCOSE 175 mg/dL (74-118); POTASSIUM 4.9 mmol/L (3.5-5.1); SODIUM 139 mmol/L (136-145)
[2019-07-25 05:39] LABS: LIPASE < 4 U/L (8-78)
[2019-07-25 07:05] LABS: EOSINOPHILS % (MANUAL) 1 % (0-7); LYMPHOCYTES % (MANUAL) 6 % (19-48); MONOCYTES % (MANUAL) 12 % (3.4-9.0); NEUTROPHILS % (MANUAL) 81 % (40-74); PLATELET ESTIMATE ADEQUATE; PLATELET MORPHOLOGY COMMENT NORMAL; RBC MORPHOLOGY COMMENT NORMAL
[2019-07-25] MEDS: PIPER-TAZ 3.375 GM / NS 50ML IV SCH ×3 (07:20→21:23)
[2019-07-25] MEDS: INSULIN REGULAR, HUMAN 100 UNIT/1 ML 3ML VIAL SQ SCH ×4 (07:30→20:48)
--- NOTE | 2019-07-25 07:47 | NUR ---
Patient left the floor to the OR
[2019-07-25] MEDS ORDERED: BUPIVACAINE 0.5%/EPI 30 ML SDV INJ ONE (08:04)
[2019-07-25] MEDS ORDERED: ACETAMINOPHEN 1000 MG/100 ML IV PRN (10:30)
[2019-07-25] MEDS: PANTOPRAZOLE 40 MG 10ML VIAL IV SCH (12:43)
[2019-07-25] MEDS: METRONIDAZOLE 500MG/NS 100ML 100 ML IV SCH ×2 (12:43→18:29)
[2019-07-25] MEDS ORDERED: ACETAMINOPHEN 1000 MG/100 ML IV ONE (14:32)
[2019-07-25] MEDS ORDERED: ONDANSETRON HCL INJ 2MG/ML 2ML 2 MG/ML VIAL ONE (14:32)
[2019-07-25] MEDS ORDERED: SEVOFLURANE INHAL SOLN 250 ML PEN BTL ONE (14:32)
[2019-07-25] MEDS ORDERED: DEXAMETHASONE SOD PHOS INJ 4 MG/ML VIAL ONE (14:32)
[2019-07-25] MEDS ORDERED: PROPOFOL IV EMULSION 10 MG/ML 20 ML VIAL ONE (14:32)
[2019-07-25] MEDS ORDERED: GLYCOPYRROLATE INJ 0.2 MG/ML VIAL ONE (14:32)
[2019-07-25] MEDS ORDERED: NEOSTIGMINE 1 MG/ML 10ML VIAL ONE (14:32)
[2019-07-25] MEDS ORDERED: ROCURONIUM BROMIDE 10 MG/ML 5ML VIAL ONE (14:32)
[2019-07-25] MEDS ORDERED: LIDOCAINE HCL 2% LOCAL INJ 5 ML SDV VIAL INJ ONE (14:32)
[2019-07-25] MEDS ORDERED: MIDAZOLAM HCL 2 MG/2 ML VIAL ONE (14:56)
[2019-07-25] MEDS ORDERED: FENTANYL CITRATE/PF 100MCG/2 ML INJ ONE (14:56)
--- NOTE | 2019-07-25 17:19 | Operative Report ---
DATE OF PROCEDURE: 07/25/2019 SURGEON: Oskar Cristobal MD PREOPERATIVE DIAGNOSIS: Acute cholecystitis and cholelithiasis. POSTOPERATIVE DIAGNOSIS: Acute gangrenous cholecystitis and cholelithiasis. OPERATION PERFORMED: Laparoscopic cholecystectomy. ANESTHESIA: General. COMPLICATIONS: None. ESTIMATED BLOOD LOSS: Minimal. DESCRIPTION OF PROCEDURE: With the patient lying in bed in the supine position under good general endotracheal anesthesia, the abdomen was prepped with Betadine solution and draped in the usual manner. A Veress needle was introduced into the umbilicus and pneumoperitoneum was established without any difficulty. An 11 mm trocar was placed into the umbilicus and a 10 mm video laparoscope was placed into the intra-abdominal cavity. Under direct vision, three 5 mm trocars were placed in the right subcostal region. An extra 5 mm trocar was placed in the left upper quadrant to be able to retract very redundant omentum. Laparoscopy at this point revealed the gallbladder could not be visualized, as it was totally covered up by plastered of omentum in the right upper quadrant. The rest of the abdominal exploration was within normal limits. The omentum was then slowly and carefully from the gallbladder. It quickly became evident and large patches to the wall of the gallbladder were fully gangrenous. The omentum was totally and completely from the gallbladder. The peritoneum of the neck of the gallbladder was then opened and the cystic duct was identified. The cystic duct was followed to its junction with the common duct. There was a lot of inflammatory reaction in the triangle of Calot from the rjwez-wa-oiwsoni inflammatory process. Nonetheless, the cystic duct was then circumferentially dissected away from the common duct, doubly clipped, and divided. The cystic artery had an anterior and a posterior branch and both of these were individually clipped and divided. The gallbladder was then slowly and carefully taken off the liver bed using the cautery scissors. There was a lot of gangrenous changes of the back wall of the gallbladder. Nonetheless, the gallbladder was totally removed and hemostasis was ascertained. The gallbladder was then placed in a pouch and removed through the umbilicus after enlarging the umbilical incision. The laparoscopy was then again carried out. The liver bed was found to be perfectly dry. The whole area was thoroughly irrigated and all the excess fluid was aspirated. A 10 flat Socrates-Sales drain was brought out through the lateral-most trocar site and left in the hepatorenal fossa and sutured to the skin with 2-0 silk and then pneumoperitoneum was evacuated and all the trocars were removed under direct vision. The midline fascia at the umbilicus was then closed with 2 iyudbjd-ur-oidrz of 0 Vicryl. All layers were infiltrated on the way out with solution of 0.25% Marcaine. Subcutaneous tissue was approximated with 3-0 Vicryl and the skin was closed with subcuticular 5-0 Vicryl. Benzoin, Steri-Strips, and Band-Aids were applied. The sponge, lap, and needle count was correct. The patient tolerated the procedure well and returned to the recovery room in stable condition. MD SILVER Taylor/YOHANA /[id number]
[2019-07-26] VITALS (7 sets, daily range): BP systolic 124–156; BP diastolic 71–87
[2019-07-26] MEDS: METRONIDAZOLE 500MG/NS 100ML 100 ML IV SCH ×5 (00:31→23:59)
[2019-07-26] MEDS: SODIUM CHLORIDE 0.9% 1000ML 1,000 ML IV SCH ×3 (00:31→21:31)
[2019-07-26] MEDS: ONDANSETRON HCL INJ 2MG/ML 2ML 2 MG/ML VIAL IV PRN ×2 (02:59→22:15)
[2019-07-26] MEDS: HYDROMORPHONE 1MG/1ML INJ IV PRN ×2 (02:59→22:15)
[2019-07-26] MEDS: PIPER-TAZ 3.375 GM / NS 50ML IV SCH ×3 (05:29→21:54)
[2019-07-26 05:53] LABS: BASOPHILS % 0.1 % (0.0-1.0); EOSINOPHILS % 0.1 % (0.0-6.0); HEMATOCRIT 36.3 % (38.2-49.6); HEMOGLOBIN 11.8 g/dL (14.0-18.0); LYMPHOCYTES # (AUTO) 1.2 (1.0-3.2); LYMPHOCYTES % 6.9 % (18.0-39.1); MEAN CORPUSCULAR HEMOGLOBIN 29.6 pg (28-32); MEAN CORPUSCULAR HGB CONC 32.5 g/dL (31-35); MONOCYTES # (AUTO) 1.2 (0.2-0.8); MONOCYTES % 7.4 % (4.4-11.3); NEUTROPHILS # (AUTO) 14.3 (2.1-6.9); PLATELET COUNT 297 x10e3/uL (140-360); RED BLOOD COUNT 3.99 x10e6/uL (4.3-5.7); RED CELL DISTRIBUTION WIDTH 13.2 % (11.7-14.4)
[2019-07-26 06:03] LABS: ALANINE AMINOTRANSFERASE 42 IU/L (0-55); ALBUMIN 2.4 g/dL (3.5-5.0); ALBUMIN/GLOBULIN RATIO 0.7 (0.8-2.0); ALKALINE PHOSPHATASE 58 IU/L (40-150); ANION GAP 14.2 mmol/L (8-16); BLOOD UREA NITROGEN 20 mg/dL (7-26); BUN/CREATININE RATIO 22 (6-25); CALCIUM 8.6 mg/dL (8.4-10.2); CARBON DIOXIDE 25 mmol/L (22-29); CHLORIDE 106 mmol/L (98-107); CREATININE, SERUM 0.92 mg/dL (0.72-1.25); EST GLOMERULAR FILTRATION RATE > 60 ML/MIN (60-); GLUCOSE 172 mg/dL (74-118); POTASSIUM 4.2 mmol/L (3.5-5.1); SODIUM 141 mmol/L (136-145)
--- NOTE | 2019-07-26 06:35 | NUR ---
spoke to Dr Cristobal about patient requesting to have something to eat. MD said he would round with patient and given order later
[2019-07-26] MEDS: INSULIN REGULAR, HUMAN 100 UNIT/1 ML 3ML VIAL SQ SCH ×4 (10:41→21:00)
--- NOTE | 2019-07-26 11:18 | Progress Note ---
DATE: 07/26/2019 CHIEF COMPLAINT/HISTORY OF PRESENT ILLNESS: This is a 59-year-old white man, who was initially admitted to [facility] with a diagnosis of acute cholecystitis. Yesterday, the patient underwent laparoscopic cholecystectomy and during the surgery was found to have acute gangrenous cholecystitis as well as cholelithiasis. The patient tolerated the surgery quite well. He has a [employer] drain in place, which is draining minimal serosanguineous fluid. The patient denies abdominal pain. The patient is eager to eat. Blood work done today revealed serum glucose 172 mg/dL. AST and ALT are 45 and 42 respectively. BUN and creatinine 20 and 0.92 respectively. Today the [place]'s [place] [id number] with 85% segmented neutrophils. REVIEW OF SYSTEMS: As per HPI. PHYSICAL EXAMINATION: GENERAL: He is awake, alert, fluent, in no distress, very pleasant, calm on exam. VITAL SIGNS: Blood pressure is 133/72, pulse 84, respiratory rate 18, temperature 97.4, oxygen 96% on room air. BMI 30. INTEGUMENT: Skin is warm and dry. No pallor, jaundice, or diaphoresis. HEENT: Anicteric sclerae. Moist mucous membranes. NECK: Supple. CARDIOVASCULAR: Regular rate and rhythm. LUNGS: No rales. No rhonchi or wheezes. ABDOMEN: Soft. He does have faint bowel sounds. EXTREMITIES: No edema or deformity. NEURO: Intact. DIAGNOSES: 1. Acute gangrenous cholecystitis. 2. Status post laparoscopic cholecystectomy. 3. Hypertensive heart disease. 4. Type 2 diabetes. PLAN: 1. Monitor and control glucose levels. 2. Intravenous fluids. 3. We will defer diet to general surgeon. 4. Continue intravenous antibiotics. 5. Follow white blood cell count. 6. Discharge planning likely for tomorrow, Saturday, July 27, 2019. I spent 30 minutes in the care of the patient. MD SMITH Sanders/YOHANA /[id number] ARCENIO
--- NOTE | 2019-07-26 11:50 | NUR ---
PT DRESSING REINFORCED, DUE TO DRAINAGE.
[2019-07-26] MEDS ORDERED: HYDROCODONE/APAP 7.5MG-325MG 1 EA TAB PO PRN (12:30)
--- NOTE | 2019-07-26 12:30 | NUR ---
DR. Anayeli HERBERT, VISITED PT AND CHANGED DRESSING
[2019-07-26] MEDS: PANTOPRAZOLE 40 MG 10ML VIAL IV SCH (14:00)
[2019-07-27] VITALS (8 sets, daily range): BP systolic 113–158; BP diastolic 67–85
[2019-07-27] MEDS: PIPER-TAZ 3.375 GM / NS 50ML IV SCH ×3 (05:51→22:47)
[2019-07-27] MEDS: METRONIDAZOLE 500MG/NS 100ML 100 ML IV SCH ×4 (06:21→23:55)
[2019-07-27 06:35] LABS: ALANINE AMINOTRANSFERASE 36 IU/L (0-55); ALBUMIN 2.5 g/dL (3.5-5.0); ALBUMIN/GLOBULIN RATIO 0.8 (0.8-2.0); ALKALINE PHOSPHATASE 54 IU/L (40-150); BLOOD UREA NITROGEN 18 mg/dL (7-26); BUN/CREATININE RATIO 20 (6-25); CALCIUM 8.5 mg/dL (8.4-10.2); CHLORIDE 107 mmol/L (98-107); CREATININE, SERUM 0.88 mg/dL (0.72-1.25); EST GLOMERULAR FILTRATION RATE > 60 ML/MIN (60-); GLUCOSE 127 mg/dL (74-118); SODIUM 142 mmol/L (136-145)
[2019-07-27 06:46] LABS: CARBON DIOXIDE 25 mmol/L (22-29)
[2019-07-27] MEDS: INSULIN REGULAR, HUMAN 100 UNIT/1 ML 3ML VIAL SQ SCH ×4 (07:30→20:41)
[2019-07-27] MEDS: SODIUM CHLORIDE 0.9% 1000ML 1,000 ML IV SCH (08:36)
--- NOTE | 2019-07-27 10:37 | Progress Note ---
DATE: 07/27/2019 CHIEF COMPLAINT/HISTORY OF PRESENT ILLNESS: This is a 59-year-old man, whose primary treating diagnosis is acute gangrenous cholecystitis and cholelithiasis. The patient underwent laparoscopic cholecystectomy for this condition, which he tolerated quite well. The patient has a [employer] drain in place and it is draining a significant amount of serosanguineous fluid. The patient states his pain is controlled. The patient is eager to eat. The patient denies any fever or chills. REVIEW OF SYSTEMS: As per HPI. PHYSICAL EXAMINATION: GENERAL: He is awake, alert, fluent, in no distress. VITAL SIGNS: Blood pressure is 146/68, pulse is 64, respiratory rate 18, and temperature 97.4. No fever overnight. Oxygen saturation 98% on room air. BMI of 31. INTEGUMENT: Skin is warm and dry. No pallor, jaundice, diaphoresis. HEENT: Anicteric sclerae with moist mucous membranes. NECK: Supple. CARDIOVASCULAR: Regular rate and rhythm. LUNGS: No rales, no rhonchi. No wheezes. ABDOMEN: Soft. He has a [employer] drain in place, but he has faint bowel sounds. EXTREMITIES: No edema or deformity. NEUROLOGIC: Intact. DIAGNOSES: 1. Acute gangrenous cholecystitis. 2. Status post laparoscopic cholecystectomy. 3. Hypertensive heart disease. 4. Type 2 diagnosis. PLAN: 1. Monitor and control glucose levels. 2. Monitor and control blood pressure. 3. Intravenous fluids. 4. We will defer diet to general surgeon. 5. Continue intravenous antibiotics. 6. Follow white blood cell count. 7. Discharge planning likely for tomorrow Sunday, July 28, 2019. I spent 35 minutes in the care of this patient. MD SMITH Sanders/YOHANA /[id number] ARCENIO
[2019-07-27] MEDS: PANTOPRAZOLE 40 MG 10ML VIAL IV SCH (16:20)
--- NOTE | 2019-07-27 19:19 | NUR ---
report to on coming nurse walking rounds complete.
[2019-07-27] MEDS: HYDROMORPHONE 1MG/1ML INJ IV PRN (21:50)
[2019-07-28] VITALS (7 sets, daily range): BP systolic 145–205; BP diastolic 76–94
[2019-07-28] MEDS: SODIUM CHLORIDE 0.9% 1000ML 1,000 ML IV SCH (01:00)
[2019-07-28] MEDS: ACETAMINOPHEN 325 MG TAB PO PRN (04:45)
[2019-07-28] MEDS: METRONIDAZOLE 500MG/NS 100ML 100 ML IV SCH ×3 (05:08→17:24)
[2019-07-28] MEDS: ONDANSETRON HCL INJ 2MG/ML 2ML 2 MG/ML VIAL IV PRN (05:09)
[2019-07-28] MEDS: HYDROMORPHONE 1MG/1ML INJ IV PRN (05:09)
[2019-07-28 05:20] LABS: BASOPHILS # (AUTO) 0.1 (0.0-0.1); EOSINOPHILS # (AUTO) 0.3 (0.0-0.4); EOSINOPHILS % 3.2 % (0.0-6.0); HEMATOCRIT 36.6 % (38.2-49.6); LYMPHOCYTES # (AUTO) 1.5 (1.0-3.2); LYMPHOCYTES % 19.4 % (18.0-39.1); MEAN CORPUSCULAR HEMOGLOBIN 29.2 pg (28-32); MEAN CORPUSCULAR HGB CONC 32.8 g/dL (31-35); MEAN CORPUSCULAR VOLUME 89.1 fL (81-99); MONOCYTES # (AUTO) 0.6 (0.2-0.8); MONOCYTES % 7.8 % (4.4-11.3); NEUTROPHILS # (AUTO) 5.4 (2.1-6.9); NEUTROPHILS % 67.5 % (38.7-80.0); PLATELET COUNT 340 x10e3/uL (140-360); RED BLOOD COUNT 4.11 x10e6/uL (4.3-5.7); RED CELL DISTRIBUTION WIDTH 12.8 % (11.7-14.4)
[2019-07-28 05:39] LABS: ALANINE AMINOTRANSFERASE 30 IU/L (0-55); ALBUMIN 2.6 g/dL (3.5-5.0); ALBUMIN/GLOBULIN RATIO 0.8 (0.8-2.0); ALKALINE PHOSPHATASE 53 IU/L (40-150); ANION GAP 13.7 mmol/L (8-16); BLOOD UREA NITROGEN 11 mg/dL (7-26); BUN/CREATININE RATIO 13 (6-25); CALCIUM 8.8 mg/dL (8.4-10.2); CARBON DIOXIDE 26 mmol/L (22-29); CHLORIDE 106 mmol/L (98-107); CREATININE, SERUM 0.84 mg/dL (0.72-1.25); EST GLOMERULAR FILTRATION RATE > 60 ML/MIN (60-); GLUCOSE 153 mg/dL (74-118); POTASSIUM 3.7 mmol/L (3.5-5.1); SODIUM 142 mmol/L (136-145)
[2019-07-28] MEDS: PIPER-TAZ 3.375 GM / NS 50ML IV SCH ×2 (05:45→14:26)
--- NOTE | 2019-07-28 07:00 | NUR ---
BEDSIDE SHIFT REPORT RECEIVED FROM THE DISTRICT ADMINISTRATIVE ASSISTANT RN. EDUCATED PT ABOUT FALL PRECAUTIONS. CALL LIGHT WITH IN EASY REACH. INSTRUCTED PT TO USE CALL LIGHT FOR ALL THE NEEDS. PT VERBALIZED UNDERSTANDING.BED IS LOW AND LOCKED. SIDE RAILS X2. PT DENIES NEEDS AT THIS TIME.
[2019-07-28] MEDS: INSULIN REGULAR, HUMAN 100 UNIT/1 ML 3ML VIAL SQ SCH ×3 (07:30→16:30)
--- NOTE | 2019-07-28 08:00 | NUR ---
PT REFUSED INSULIN. PT TAKES INSULIN PEN FROM HOME. OKAY PER DR. Anum MARRERO.
[2019-07-28] MEDS ORDERED: MONTELUKAST SODIUM 10 MG TAB PO SCH (09:30)
[2019-07-28] MEDS ORDERED: LISINOPRIL 10 MG TAB PO PRN (09:30)
[2019-07-28] MEDS ORDERED: ESCITALOPRAM OXALATE 10 MG TAB PO SCH (09:30)
[2019-07-28] MEDS ORDERED: ASPIRIN 81 MG ENTERIC COATED PO SCH (09:30)
[2019-07-28] MEDS: PANTOPRAZOLE 40 MG 10ML VIAL IV SCH (10:51)
[2019-07-28] MEDS ORDERED: NORCO 7.5-3251 EACH PO (18:38)
[2019-07-28] MEDS ORDERED: LEVAQUIN500 MG PO (18:38)
--- NOTE | 2019-07-28 19:00 | NUR ---
BEDSIDE SHIFT REPORT GIVEN TO THE MANAGER POLICY RN. PT IS WAITING FOR HIS TO COME AND PICK HIM. PT DENIED FURTHER NEEDS.
== END 2019-07-28 19:45 | disposition home or self-care (01) | DRG 419 ==
LOC: ER 20:30 → ERHOLD 07-24 00:42 → MED/SURG2 07-24 16:11
PROC: 0FT44ZZ Resection of Gallbladder, Percutaneous Endoscopic Approach (ICD-10-PCS; principal; 2019-07-24)
DX: K80.00 Calculus of gallbladder with acute cholecystitis without obstruction (principal); K82.A1 Gangrene of gallbladder in cholecystitis; I11.0 Hypertensive heart disease with heart failure; I50.9 Heart failure, unspecified; E11.9 Type 2 diabetes mellitus without complications
CPT/HCPCS: 36415; 76705; 80053; 81001; 82150; 82378; 82550; 82553; 82948; 83690; 84484; 85025; 88304; 93005; 94640; 96372; 96374; 99284; C1766; J0500; J1100; J1170; J1817; J2001; J2250; J2270; J2405; J2543; J2710; J3010; J7030

== ENCOUNTER 2021-06-03 09:06 | Emergency (ER) | payer OTHER ==
[~2021-06-03] VITALS: Ht 180.3 cm; Wt 103.4 kg
[~2021-06-03 09:06] MED LIST changes: +ALBUTEROL2.5 MG/3 M INH; +ESCITALOPRAM OX10 MG PO; +MONTELUKAST SOD10 MG PO; +NORCO 7.5-3251 EACH PO
[2021-06-03] MEDS ORDERED: KETOROLAC TROMETHAMINE 30 MG/ML VIAL IM ONE (09:37)
[2021-06-03] MEDS ORDERED: NAPROXEN250 MG PO (09:38)
== END 2021-06-03 09:49 | disposition home or self-care (01) ==
LOC: ER 09:11
DX: S16.1XXA Strain of muscle, fascia and tendon at neck level, initial encounter (principal); M25.512 Pain in left shoulder; X50.1XXA Overexertion from prolonged static or awkward postures, initial encounter; Y92.89 Other specified places as the place of occurrence of the external cause; I10 Essential (primary) hypertension; E11.9 Type 2 diabetes mellitus without complications; J45.909 Unspecified asthma, uncomplicated; F41.9 Anxiety disorder, unspecified
CPT/HCPCS: 99282; J1885

== ENCOUNTER 2021-07-09 16:34 | Emergency (ER) | payer BC, OTHER ==
[~2021-07-09] VITALS: Ht 180.3 cm; Wt 103.4 kg
[~2021-07-09 16:34] MED LIST changes: +NAPROXEN250 MG PO
[2021-07-09] MEDS ORDERED: DOXYCYCLINE HY100 MG PO (16:54)
[2021-07-09] MEDS ORDERED: IBUPROFEN600 MG PO (16:54)
[2021-07-09] MEDS ORDERED: KETOROLAC TROMETHAMINE 30 MG/ML VIAL IM STA (16:57)
[2021-07-09] MEDS ORDERED: AZITHROMYCIN 250 MG TAB ONE (17:02)
[2021-07-09] MEDS ORDERED: CEFTRIAXONE 1 GM VIAL ONE (17:03)
[2021-07-09] MEDS ORDERED: LIDOCAINE HCL 2% LOCAL 20 ML VIAL ONE (17:03)
[2021-07-09] MEDS ORDERED: KETOROLAC TROMETHAMINE 60 MG/2 ML VIAL ONE (17:05)
[2021-07-09] MEDS ORDERED: CEFTRIAXONE 250 MG VIAL IM ONE (17:30)
[2021-07-09] MEDS ORDERED: AZITHROMYCIN 250 MG TAB PO ONE (17:30)
== END 2021-07-09 17:14 | disposition home or self-care (01) ==
LOC: FSED 16:44
DX: R30.0 Dysuria (principal); A54.01 Gonococcal cystitis and urethritis, unspecified; N45.1 Epididymitis; I10 Essential (primary) hypertension; E11.9 Type 2 diabetes mellitus without complications; F41.9 Anxiety disorder, unspecified
CPT/HCPCS: 81003; 99284; J0696 ×2; J1885; J2001

== ENCOUNTER 2024-01-25 01:09 | Emergency (ER) | payer BC ==
[~2024-01-25] VITALS: Ht 180.3 cm; Wt 103.4 kg
[~2024-01-25 01:09] MED LIST changes: +DOXYCYCLINE HY100 MG PO; +IBUPROFEN600 MG PO; +ONDANSETRON ODT4 MG PO
[2024-01-25 01:37] VITALS: PULSE 75; RESP 16; TEMP 98.6; O2SAT 100
== END 2024-01-25 01:44 | disposition home or self-care (01) ==
LOC: ER 01:16
DX: I10 Essential (primary) hypertension (principal); R51.9 Headache, unspecified; E11.9 Type 2 diabetes mellitus without complications; F41.9 Anxiety disorder, unspecified; F32.A Depression, unspecified
CPT/HCPCS: 99283